=== PATIENT | female | born 1945 | race Two or more races ===

== ENCOUNTER 2018-06-10 16:19 | Inpatient (IN) | payer OTHER ==
[~2018-06-10] VITALS: Ht 154.9 cm; Wt 68.0 kg
[2018-06-10] MEDS ORDERED: LIPITOR20 MG PO (16:36)
[2018-06-10] MEDS ORDERED: COZAAR100 MG PO (16:36)
[2018-06-19] MEDS ORDERED: VENTOLIN HFA18 GM (11:41)
== END 2018-06-19 13:43 | disposition home or self-care (01) | DRG 203 ==
LOC: ER 16:19 → MEDJ 21:48 → EDBD 21:48 → MEDI 21:48 → MEDJ 23:03
PROC: BB24ZZZ Computerized Tomography (CT Scan) of Bilateral Lungs (ICD-10-PCS; principal; 2018-06-10)
PROC: B246ZZZ Ultrasonography of Right and Left Heart (ICD-10-PCS; 2018-06-10)
PROC: 3E0F7GC Introduction of Other Therapeutic Substance into Respiratory Tract, Via Natural or Artificial Opening (ICD-10-PCS; 2018-06-10)
PROC: 4A033R1 Measurement of Arterial Saturation, Peripheral, Percutaneous Approach (ICD-10-PCS; 2018-06-10)
DX: J45.901 Unspecified asthma with (acute) exacerbation (principal); I10 Essential (primary) hypertension

== ENCOUNTER 2019-01-04 11:17 | Emergency (ER) | payer OTHER ==
[~2019-01-04] VITALS: Ht 152.4 cm; Wt 68.5 kg
[~2019-01-04 11:17] MED LIST: COZAAR100 MG PO; LIPITOR20 MG PO; VENTOLIN HFA18 GM
== END 2019-01-04 14:17 | disposition home or self-care (01) ==
LOC: ER 11:17
DX: B35.6 Tinea cruris (principal)